=== PATIENT | male | born 1960 | race Caucasian/White ===

== ENCOUNTER → 2017-09-24 | Outpatient (CLI) | payer OTHER ==
[~2017-09-24] MED LIST: ASCORBIC ACID500 M3 PO; ASPIR 8181 M1 PO; HYZAAR 100-11 TABLET PO; LEVOTHYROXINE112 MCG PO
== END | disposition home or self-care (01) ==
LOC: CDC 09:48
DX: Z01.810 Encounter for preprocedural cardiovascular examination (principal); G56.01 Carpal tunnel syndrome, right upper limb; M79.641 Pain in right hand; M25.531 Pain in right wrist; R00.1 Bradycardia, unspecified; R94.31 Abnormal electrocardiogram [ECG] [EKG]
CPT/HCPCS: 93000